=== PATIENT | female | born 1995 | race African-American/Black ===

== ENCOUNTER 2020-01-11 12:12 | Emergency (ER) | payer OTHER, MEDICAID ==
[~2020-01-11] VITALS: Ht 162.6 cm; Wt 71.3 kg
[~2020-01-11 12:12] MED LIST: ONDA4TAB10 SL
[2020-01-11 13:18] VITALS: BP 112/61
[2020-01-11] MEDS ORDERED: NEOMY/BACITR/POLYMYXIN OINT PACKET. TP ONE (14:15)
[2020-01-11] MEDS ORDERED: HYDROcodone/APAP 5/325MG 1 TAB TABLET PO ONE (14:15)
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
[2020-01-11] MEDS ORDERED: HYDR-3164 PO (15:39)
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
== END 2020-01-11 16:00 | disposition home or self-care (01) ==
LOC: ER 12:12
DX: S90.512A Abrasion, left ankle, initial encounter (principal); M25.572 Pain in left ankle and joints of left foot; M25.561 Pain in right knee; M25.562 Pain in left knee; V89.2XXA Person injured in unspecified motor-vehicle accident, traffic, initial encounter; Y93.89 Activity, other specified; Y92.488 Other paved roadways as the place of occurrence of the external cause; Y99.8 Other external cause status
CPT/HCPCS: 29515; 73610; 81025; 99283